=== PATIENT | male | born 1975 | race Two or more races ===

== ENCOUNTER 2018-03-05 01:56 | Emergency (ER) | payer SELFPAY ==
[~2018-03-05 01:56] MED LIST: AMOX-559 PO; CEFU500T50 PO; CEPH500C24 PO; ESOM40CA42 PO; HYDR-4309 PO; LOR5 PO; LOR5/325 PO; MULT-1335 PO; OXYC-865 PO; PANT40TA65 PO; PROC5L PO; PROM-110 PO
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
[2018-03-05] MEDS ORDERED: APAP/HYDROCODONE 325/5 TAB PO ONE (02:15)
[2018-03-05] MEDS ORDERED: IBUPROFEN 600 MG TAB PO ONE (02:15)
--- NOTE | 2018-03-05 02:44 | RADIOLOGY IMAGING REPORT ---
FACILITY: [facility] PATIENT NAME: Terry Baker : 1975 MR: [id number] V: [id number] EXAM DATE: ORDERING PHYSICIAN: REINALDO FLOWERS TECHNOLOGIST: Location: [facility] Patient: Terry Baker : 1975 Visit/Account:[id number] Date of Sevice: 03/05/2018 INDICATION: fall severe shoulder pain EXAM DATE: 03/05/2018 2:14 AM COMPARISON: 06/01/2012. FINDINGS: 3 views of the right shoulder. Mineralization is normal. No acute alignment abnormality or fracture. Soft tissues are unremarkable. IMPRESSION: Normal right shoulder. Report Dictated By: Edgardo Rowley MD at 03/05/2018 2:36 AM Report E-Signed By: Edgardo Rowley MD at 03/05/2018 2:39 AM WSN:[id number]
[2018-03-05] MEDS ORDERED: ACET/HYDROC 5/325MG TH ER ONLY 2 TAB/BOTTLE PO ONE (02:50)
[2018-03-05] MEDS ORDERED: HYDR-4309 PO (02:53)
[2018-03-05 02:57] VITALS: BP 120/83
== END 2018-03-05 03:06 | disposition home or self-care (01) ==
LOC: ER 02:04
DX: S40.011A Contusion of right shoulder, initial encounter (principal)
CPT/HCPCS: 73030; 99283; A4565